=== PATIENT | female | born 1950 | race Caucasian/White ===

== ENCOUNTER 2021-12-29 15:18 | Outpatient (CLI) | payer MEDICARE | END 2021-12-29 15:19 | disposition home or self-care (01) | LOC: CSHMAMMO 15:18 | PROVIDERS: ATTEND Family Medicine | DX: Z13.820 Encounter for screening for osteoporosis (principal); N95.9 Unspecified menopausal and perimenopausal disorder | CPT/HCPCS: 77080 ==

== ENCOUNTER 2024-01-11 14:05 | Outpatient (CLI) | payer MEDICARE | END 2024-01-11 14:06 | disposition home or self-care (01) | LOC: CSHMAMMO 14:05 | PROVIDERS: ATTEND Family Medicine | DX: Z78.0 Asymptomatic menopausal state (principal); M85.852 Other specified disorders of bone density and structure, left thigh | CPT/HCPCS: 77080 ==

== ENCOUNTER 2024-02-25 10:06 | Outpatient (CLI) | payer MEDICARE ==
[2024-02-25] MEDS ORDERED: Iopamidol 300 61% 100 ML VIAL FS ONE (12:21)
== END 2024-02-25 10:07 | disposition home or self-care (01) ==
LOC: CSHCT 10:06
PROVIDERS: ATTEND Family Medicine
DX: R10.84 Generalized abdominal pain (principal)
CPT/HCPCS: 36415; 74170; 82565; Q9967